=== PATIENT | female | born 1940 | race Two or more races ===

== ENCOUNTER 2018-04-10 02:14 | Inpatient (IN) | payer MEDICARE, MEDICAID ==
[~2018-04-10] VITALS: Ht 165.1 cm; Wt 54.9 kg
[~2018-04-10 02:14] MED LIST: ATOR10TA PO; BISA-79 RC; CALC-838 PEG; CRAN500C5 PO; DILT240C2 PO; MAGN400O21 PO; MELA3TAB PO; METO50TA16 PO; METOLAZONE PO; MONT10TA22 PO; OXCA150T5 PO; OXYC10TA49 PO; PRED20TA PO; PRED5TAB48 PO; RIVA10TA PO; TEMA15CA PO; TRAV5DRO OP; TYL2T PO; [UNRECOGNIZED DRUG - OTHER] PEG
[2018-04-10] MEDS ORDERED: IPRATROPIUM NEB FS 0.5 MG/2.5 ML AMPUL.NEB NEB ONE (02:30)
[2018-04-10] MEDS ORDERED: ALBUTEROL FS 2.5 MG/3 ML VIAL.NEB NEB ONE (02:30)
--- NOTE | 2018-04-10 02:30 | NUR ---
PT BIB [facility] WITH A C/O SOB. PT CALLED 911 HERSELF. PT RESIDES AT THE [facility], [place]. PT STATED THAT THE STAFF WOULD NOT CALL FOR HER AND SHE CALLED 911 HERSELF. PT IS ABLE TO SPEAK IN FULL SENTENCES. PT IS ON 3L O2 VIA NC SATURATING AT 94%. PT STATED THAT SHE HAS BEEN ON 4L O2 VIA NC AT HER FACILITY. O2 INCREASED TO 4L. PT IS SATURATING AT 94%. DR. HERNANDEZ IS AT THE BEDSIDE SPEAKING TO THE PT.
[2018-04-10] MEDS ORDERED: ALBUTEROL FS 2.5 MG/3 ML VIAL.NEB ONE (02:38)
[2018-04-10] MEDS ORDERED: IPRATROPIUM NEB FS 0.5 MG/2.5 ML AMPUL.NEB ONE (02:38)
--- NOTE | 2018-04-10 02:38 | NUR ---
STARTED 20G IV IN RAC AND BLOOD WAS DRAWN.
--- NOTE | 2018-04-10 02:43 | NUR ---
PT IS ON A BREATHING TX.
[2018-04-10 02:57] LABS: BASOPHILS % (AUTO) 0.3 % (0.0-2.0); EOSINOPHILS % (AUTO) 3.9 % (0.0-6.0); HEMATOCRIT 43 % (33-45); LYMPHOCYTES # (AUTO) 0.6 /CMM (0.8-4.8); LYMPHOCYTES % (AUTO) 11.2 % (20.0-44.0); MEAN CORPUSCULAR HGB CONC 32 g/dl (31.0-36.0); MEAN CORPUSCULAR VOLUME 95 fL (82-100); MONOCYTES # (AUTO) 0.4 /CMM (0.1-1.30); MONOCYTES % (AUTO) 7.1 % (2.0-12.0); NEUTROPHILS # (AUTO) 4.1 /CMM (1.8-8.9); NEUTROPHILS % (AUTO) 77.5 % (43.0-81.0); PLATELET COUNT (AUTO) 172 /CMM (150-450); RED BLOOD CELL COUNT(AUTO) 4.59 MIL/uL (4.0-5.2); WHITE BLOOD COUNT (AUTO) 5.3 K/uL (4.3-11.0)
--- NOTE | 2018-04-10 03:00 | NUR ---
CXR IN PROGRESS AT THE BEDSIDE.
[2018-04-10 03:05] LABS: CALCIUM, SERUM 8.5 mg/dL (8.5-10.1); CARBON DIOXIDE 35 mmol/L (21-32); CHLORIDE 105 mmol/L (98-107); CREATININE 0.5 mg/dL (0.6-1.3); GLUCOSE 104 mg/dL (74-106); POTASSIUM 3.5 mmol/L (3.5-5.1); SODIUM SERUM 143 mmol/L (136-145); UREA NITROGEN, BLOOD 18 mg/dL (7-18)
[2018-04-10 03:11] LABS: ALANINE AMINOTRANSFERASE 21 U/L (12-78); ALBUMIN 3.1 g/dL (3.4-5.0); ALKALINE PHOSPHATASE 79 U/L (46-116); ASPARTATE AMINOTRANSFERASE 28 U/L (15-37); BILIRUBIN,DIRECT 0.1 mg/dL (0.0-0.2); BILIRUBIN,TOTAL 0.3 mg/dL (0.2-1.0); TOTAL PROTEIN, SERUM 6.7 g/dL (6.4-8.2)
[2018-04-10] MEDS ORDERED: hydrALAZINE HCL IV 20 MG VIAL IV ONE (04:00)
[2018-04-10] MEDS ORDERED: CEFEPIME 1 GM in IV D5W 50 ML IV ONE (04:00)
[2018-04-10] MEDS ORDERED: CEFEPIME 1 GM VIAL ONE (04:09)
--- NOTE | 2018-04-10 04:19 | NUR ---
PT REC'D MEDICATION ORDERED.
--- NOTE | 2018-04-10 04:20 | NUR ---
PT IS GOING TO TELE 327-1. DR SANDERS IS ADMITTING.
[2018-04-10 04:35] VITALS: BP 103/49
[2018-04-10] MEDS ORDERED: MAGNESIUM HYDROXIDE 30 ML UDC PO PRN (05:00)
[2018-04-10] MEDS ORDERED: BISACODYL (5 MG) 5 MG TABLET.DR PO PRN (05:00)
[2018-04-10] MEDS ORDERED: LEVALBUTEROL HCL NEB 1.25 MG/0.5 ML VIAL.NEB NEB PRN (05:30)
[2018-04-10] MEDS ORDERED: ONDANSETRON HCL/PF 4 MG/2 ML VIAL IVP PRN (05:30)
[2018-04-10] MEDS ORDERED: IPRATROPIUM NEB FS 0.5 MG/2.5 ML AMPUL.NEB NEB PRN (05:30)
[2018-04-10] MEDS ORDERED: ACETAMINOPHEN 325 MG TABLET PO PRN (05:30)
[2018-04-10] MEDS: methylPREDNISolone SOD SUCC 40 MG/ML VIAL IV SCH ×3 (05:40→20:03)
[2018-04-10] MEDS ORDERED: TEMAZEPAM 7.5 MG CAPSULE PO ONE (07:00)
[2018-04-10 07:05] VITALS: BP 107/59
[2018-04-10] MEDS: PANTOPRAZOLE 40 MG TABLET.DR PO SCH (07:30)
--- NOTE | 2018-04-10 07:40 | NUR ---
RN NOTES: -AROUND 0400 RECEIVED ENDORSEMENT FROM [facility] - ER/RN,PATIENT WAS STARTED WITH MAXIPIME 1GM,ATROVENT AND VENTOLIN GIVEN.AWAITING FOR ARRIVAL IN [address] -AT 0435 PATIENT ADMITTED IN [facility] 326-2, ACCOMPANIED BY 2 RN VIA NEMESIO, ON BREAD WRAPPING MACHINE FEEDER, A/O2-3 WITH PERIODS OF FORGETFULNESS, PATIENT LOOKS ANXIOUS AND TIRED, NOTED WITH ON AND OFF PRODUCTIVE COUGH, STICKY WHITISH PHLEGM,ON O2 AT 4L/MIN SPO2-94%, ON TELE MONITOR A.FIB WITH OCCASIONAL PVC RATE 108-110,ORIENTED TO UNIT AND STAFF,FALL,SAFETY,SEIZURE AND ASPIRATION PRECAUTION OBSERVED, KEPT ON SEMI FOWLERS POSITION, ALL LIGHT KEPT WITHIN EASY REACH.BODY ASSESSMENT DONE:1) OLD SCAB ON THE LEFT KNEE 2) SKIN ABRASION ON SHA 3) SKIN DISCOLORATION AND OLD SCAB ON RUE 4) NON BLANCHABLE REDNESS ON SACROCOCCYX AREA(NEAR RIGHT AND LEFT BUTTOCKS) 5) NON BLANCHABLE REDNESS ON THE RIGHT HIP. -0620 PATIENT IS INSISTING TO TAKE MELATONIN, EXPLAINED TO HER THAT ITS ALREADY MORNING TIME AND THIS IS NOT THE TIME TO TAKE SLEEPING PILL, BUT SHE STARTED TO GET AGITATED AND SHOUTING SAYING "YOU ARE NOT HELPING ME, I WANT MEDICINE FOR SLEEP", SHE WANT RESTORIL 7.5MG, WAS NOTIFIED AND ORDER OBTAINED FOR X1 DOSE. 0647AM ORDER VERIFIED IN PHARMACY SPOKE WITH V, RESTORIL IMMEDIATELY GIVEN PER PATIENT REQUEST.
[2018-04-10 07:52] LABS: B-TYPE NATRIURETIC PEPTIDE 3731 PG/ML (0-125); CALCIUM, SERUM 8.1 mg/dL (8.5-10.1); CARBON DIOXIDE 33 mmol/L (21-32); CHLORIDE 106 mmol/L (98-107); CREATININE 0.6 mg/dL (0.6-1.3); GLUCOSE 117 mg/dL (74-106); POTASSIUM 3.3 mmol/L (3.5-5.1); SODIUM SERUM 143 mmol/L (136-145); UREA NITROGEN, BLOOD 16 mg/dL (7-18)
--- NOTE | 2018-04-10 07:52 | NUR ---
RN NOTES: -FOR URINE TEST, WOUND CONSULT, DIETARY CONSULT, FOR ECHO,ENDORSED FOR CONTINUITY OF CARE.
[2018-04-10 08:00] VITALS: BP 113/53
[2018-04-10] MEDS: RIVAROXABAN 10 MG TABLET PO SCH (08:00)
[2018-04-10 08:53] LABS: BASOPHILS % (AUTO) 0.1 % (0.0-2.0); EOSINOPHILS % (AUTO) 1.1 % (0.0-6.0); HEMATOCRIT 40 % (33-45); HEMOGLOBIN 12.8 g/dL (11.5-14.8); LYMPHOCYTES # (AUTO) 0.4 /CMM (0.8-4.8); LYMPHOCYTES % (AUTO) 6.7 % (20.0-44.0); MEAN CORPUSCULAR HGB CONC 32 g/dl (31.0-36.0); MEAN CORPUSCULAR VOLUME 94 fL (82-100); MONOCYTES # (AUTO) 0.3 /CMM (0.1-1.30); NEUTROPHILS # (AUTO) 4.7 /CMM (1.8-8.9); NEUTROPHILS % (AUTO) 87.1 % (43.0-81.0); PLATELET COUNT (AUTO) 143 /CMM (150-450); RED BLOOD CELL COUNT(AUTO) 4.21 MIL/uL (4.0-5.2); WHITE BLOOD COUNT (AUTO) 5.4 K/uL (4.3-11.0)
[2018-04-10] MEDS: OXCARBAZEPINE 150 MG TABLET PO SCH ×2 (09:00→20:07)
[2018-04-10] MEDS: FLUTICASONE/VILANTEROL 1 EACH BLST.W.DEV IH SCH (09:00)
[2018-04-10] MEDS: DILTIAZEM HCL CD 240 MG PO SCH (09:00)
[2018-04-10] MEDS: AMOX/CLAVULANATE 875 MG TABLET PO SCH ×2 (09:00→20:04)
[2018-04-10] MEDS ORDERED: METOLAZONE 5 MG TABLET PO SCH (09:00)
[2018-04-10] MEDS: METOLAZONE 2.5 MG TABLET PO SCH (09:00)
[2018-04-10 09:18] LABS: CHOLESTEROL 136 mg/dL (<200); HDL CHOLESTEROL 47 mg/dL (40-60); LDL 84 mg/dL (0-99); TRIGLYCERIDES 65 mg/dL (30-150)
[2018-04-10 10:24] LABS: THYROID STIMULATING HORMONE < 0.007 uIU/mL (0.358-3.74)
[2018-04-10] MEDS ORDERED: POTASSIUM CHLORIDE 20 MEQ TAB.PRT.SR PO SCH (10:30)
[2018-04-10 12:00] VITALS: BP 116/58
[2018-04-10] MEDS: oxyCODONE IR immediate release 5 MG PO PRN (12:37)
[2018-04-10] MEDS ORDERED: LORATADINE 10 MG TABLET PO PRN (14:00)
[2018-04-10] MEDS: GUAIFENESIN LA 600 MG TABLET.SA PO SCH ×2 (15:30→20:03)
[2018-04-10 16:00] VITALS: BP 115/62
[2018-04-10] MEDS ORDERED: diphenhydrAMINE HCL 25 MG CAPSULE PO PRN (16:00)
[2018-04-10] MEDS: AZITHROMYCIN 500 MG in IV D5W 250 ML IV SCH (17:10)
--- NOTE | 2018-04-10 18:36 | NUR ---
RN CLOSING NOTES PT IN BED RESTING. NO S/S OF RESP DISTRESS/SOB. ALL PT NEEDS ANTICIPATED AND MET. SAFETY MEASURES IN PLACE, CALL LIGHT WITHIN REACH. WILL ENDORSE TO INTERLOCKER MAINTAINER FOR MARAI L.
--- NOTE | 2018-04-10 19:32 | NUR ---
MS RN OPENING NOTES: RECEIVED PT ON 4LPM VIA NC AND IS TOLERATING WELL. PT IS A/OX3. PT IS ASKING FOR HER EVENING MEDICATIONS AND A TURKEY SANDWICH. EXPLAINED TO HER THAT WE DO NOT CARRY TURKEY SANDWICHES. IV INTACT. BED ALARM ACTIVATED. BED KEPT IN LOW, LOCKED POSITION, AND SIDE RAILS X 2UP. WILL CONTINUE TO MONITOR PT.
[2018-04-10 20:00] VITALS: BP 115/73
--- NOTE | 2018-04-10 20:08 | NUR ---
MS RN NOTES: PT REFUSED TRILEPTAL 150MG. EXPLAINED TO PT RISKS AND BENEFITS X3. PT SAID HER NEUROSURGEON SAID SHE DOES NOT HAVE TO TAKE IT ANYMORE. PT SAID " I DO NOT HAVE SEIZURES." PT STILL REFUSING.
--- NOTE | 2018-04-10 20:46 | NUR ---
MS KIRK NOTES: INFORMED DR. SANDERS THAT PT WANTS ANOTHER DOSE OF DULCOLAX FOR TONIGHT. Addendum: 04/10/18 at 2047 by JOLIE MARIE RN OK TO GIVE ANOTHER DOSE FOR TONIGHT.
[2018-04-10] MEDS ORDERED: TEMAZEPAM 7.5 MG CAPSULE PO PRN (21:00)
--- NOTE | 2018-04-10 21:10 | NUR ---
MS RN NOTES: UPON ADMINISTERING DULCOLAX 10MG, PT ONLY WANTED TO TAKE 1 TABLET. PT WAS ADMINISTERED 1 TABLET OF DULCOLAX. WASTED OTHER TABLET.
--- NOTE | 2018-04-10 21:10 | NUR ---
MS RN NOTES: PT REQUESTING FOR SLEEPING PILL. PT WAS ADMINISTERED RESTORIL 7.5MG PO. WILL CONTINUE TO MONITOR.
--- NOTE | 2018-04-10 21:38 | NUR ---
MS RN NOTES: PT REFUSED TO TAKE LIPITOR 10MG PO AFTER EXPLAINING RISKS AND BENEFITS X 3. "THIS IS SOME CRAZY SHIT". PT REFUSED TO TAKE IT.
[2018-04-10] MEDS ORDERED: Medication Not On Formulary EA (Melatonin 6 MG) PO SCH (22:00)
[2018-04-10] MEDS ORDERED: LATANOPROST EYE DROP 0.005% 2.5 ML BOTTLE EACHEYE SCH (22:00)
[2018-04-10] MEDS ORDERED: BISACODYL (5 MG) 5 MG TABLET.DR PO ONE (22:00)
[2018-04-10] MEDS ORDERED: MONTELUKAST SODIUM (10MG) 10 MG TABLET PO SCH (22:00)
[2018-04-10] MEDS ORDERED: ATORVASTATIN 10 MG TABLET PO SCH (22:00)
[2018-04-11 01:05] VITALS: BP 120/66
[2018-04-11] MEDS: oxyCODONE IR immediate release 5 MG PO PRN (01:15)
--- NOTE | 2018-04-11 01:20 | NUR ---
MS RN NOTES: UPON ADMINISTER OXY IR 10MG, PT SAID SHE ONLY TAKES 1 TABLET. WILL WASTE THE OTHER OXY IR WITH ANOTHER NURSE. PT ALSO REQUESTED FOR HER CLARITIN 10MG AND WAS ADMINISTERED CLARITIN 1MG PO. Addendum: 04/11/18 at 0141 by JOLIE MARIE RN OTHER OXY IR 5MG WAS WASTED WITH ANOTHER RN, PENNY HAZEL. WASTED AND WITNESSED IN MED ROOM.
[2018-04-11] MEDS: methylPREDNISolone SOD SUCC 40 MG/ML VIAL IV SCH ×2 (05:01→12:57)
--- NOTE | 2018-04-11 06:26 | NUR ---
MS RN CLOSING NOTES: ALL NEEDS WERE ATTENDED AND ANTICIPATED FOR. PT ANTICIPATING FOR BREAKFAST. PT RESTING IN BED COMFORTABLY. PT NOW ON 2LPM VIA NC AND IS TOLERATING WELL. IV REMAINS INTACT. CURRENTLY H/L. BED ALARM ACTIVATED. PT ON HIGH MONTES'S POSITION. BED KEPT IN LOW, LOCKED POSITION, AND SIDE RAILS X 2UP. WILL ENDORSE TO AM NURSE FOR MARIA L.
--- NOTE | 2018-04-11 07:13 | NUR ---
MS RN OPENING NOTE RECEIVED PATIENT IN BED. SLEEPING, EASILY AROUSED WITH VERBAL STIMULI. ORIENTED X3. ON 2L O2 VIA NC, TOLERATING WELL. IN NO APPARENT DISTRESS OR DISCOMFORT AT THIS TIME. RESPIRATIONS EVEN AND UNLABORED. DENIES PAIN AND SOB. PATIENT IS INCONTINENT WITH USE OF DIAPER. RIGHT WRIST 24G IVC, SL, PATENT AND INTACT. PATIENT IS ABLE TO COMMUNICATE NEEDS. KEPT CLEAN AND COMFORTABLE. ALL NEEDS ATTENDED, SAFETY MEASURES IN PLACE, BED IN LOW LOCKED POSITION, SIDE RAILS UP X2, CALL LIGHT WITHIN EASY REACH. WILL CONTINUE TO MONITOR.
[2018-04-11 07:22] LABS: CALCIUM, SERUM 8.8 mg/dL (8.5-10.1); CARBON DIOXIDE 33 mmol/L (21-32); CHLORIDE 105 mmol/L (98-107); CREATININE 0.5 mg/dL (0.6-1.3); GLUCOSE 75 mg/dL (74-106); POTASSIUM 4.1 mmol/L (3.5-5.1); SODIUM SERUM 142 mmol/L (136-145); UREA NITROGEN, BLOOD 20 mg/dL (7-18)
[2018-04-11 08:00] VITALS: BP_SYST 136; BP_DIAS 61; BP_DIAS 81
[2018-04-11] MEDS: RIVAROXABAN 10 MG TABLET PO SCH (08:40)
[2018-04-11] MEDS: OXCARBAZEPINE 150 MG TABLET PO SCH (08:43)
[2018-04-11] MEDS: GUAIFENESIN LA 600 MG TABLET.SA PO SCH (08:43)
[2018-04-11] MEDS: AMOX/CLAVULANATE 875 MG TABLET PO SCH (08:44)
[2018-04-11] MEDS: METOLAZONE 2.5 MG TABLET PO SCH (08:44)
[2018-04-11] MEDS: DILTIAZEM HCL CD 240 MG PO SCH (08:45)
[2018-04-11] MEDS: PANTOPRAZOLE 40 MG TABLET.DR PO SCH (08:55)
[2018-04-11] MEDS: FLUTICASONE/VILANTEROL 1 EACH BLST.W.DEV IH SCH (08:56)
[2018-04-11] MEDS ORDERED: LORA10TA7 PO (13:10)
[2018-04-11] MEDS ORDERED: GUAI600T53 PO (13:10)
[2018-04-11] MEDS ORDERED: Amox/Clavulanate PO (13:10)
[2018-04-11 16:00] VITALS: BP 146/60
--- NOTE | 2018-04-11 16:30 | NUR ---
PATIENT REQUESTED TO REMOVE HER IV LINE STATING IT IS BOTHERING HER AND SHE IS GOING TO GO SOON ANYWAYS. EXPLAINED THAT WHILE SHE IS IN THE HOSPITAL IT IS ADVISED TO HAVE THE IV LINE PER MDS ORDERS. PATIENT REFUSES. EXPLAINED THAT THAT IS ANOTHER ANTIBIOTIC TO BE ADMINISTERED AT 5 PM. PATIENT REFUSED DESPITE ALL RISKS AND BENEFITS. IV SITE DISCONTINUED AT THIS TIME.
[2018-04-11] MEDS: AZITHROMYCIN 500 MG in IV D5W 250 ML IV SCH (17:00)
--- NOTE | 2018-04-11 18:56 | NUR ---
MS FORM BUILDING SUPERVISOR NOTE RECEIVED ORDER FOR DISCHARGE FROM [facility]. PATIENT IS BEING TRANSFERRED BACK TO [facility]. PATIENT IS STABLE, CLEARED BY HOSPITALIST. VITALS SIGNS STABLE. ON ROOM AIR, TOLERATING WELL. ALERT ORIENTED X3. IN NO APPARENT DISTRESS OR DISCOMFORT AT THIS TIME. RESPIRATIONS EVEN AND UNLABORED, DENIES PAIN AND SOB. FREQUENT MOOD CHANGES OBSERVED IN PATIENT. AT TIMES NON-COMPLIANT, AND ANGRY. PATIENT REFUSED SKIN ASSESSMENT PRIOR TO DISCHARGE. SAID SHE WAS CHECKED YESTERDAY WHEN SHE CAME AND SHE WANTS TO BE LEFT ALONE AT THIS TIME, SHE JUST WANTS TO LEAVE. NO PHOTOS OBTAINED. PATIENT'S IV WAS REMOVED EARLIER PER HER REQUEST. DISCHARGE PREPARED VIA [facility]. EDUCATION PROVIDED TO THE PATIENT REGARDING MEDICATIONS AND FOLLOW UP CARE. PATIENT WILL HAVE SKILLED CARE AFTER DISCHARGE. ALL PAPERS SIGNED BY THE PATIENT VERBALIZED UNDERSTANDING. EDUCATIONAL MATERIAL ATTACHED WITH DISCHARGE PAPERWORK. NO BELONGINGS PRESENT WITH THE PATIENT, CHECKED AND NOTED. ALL PAPERS WERE SIGNED, COPIES MADE PLACED IN CHART. PATIENT REFUSED VACCINATIONS. ID BAND REMOVED. REPORT GIVEN TO REAGAN WOODRUFF AT THE [facility] PRIOR TO DEPARTURE. PATIENT WAS PICKED UP BY AMBULANCE AT 1856 IN STABLE CONDITION.
== END 2018-04-11 18:56 | DRG 191 ==
LOC: ER 02:16 → TELE 04:06 → MED 15:47
PROVIDERS: ADMIT Internal Medicine; ATTEND Internal Medicine
DX: J44.1 Chronic obstructive pulmonary disease with (acute) exacerbation (principal); I69.354 Hemiplegia and hemiparesis following cerebral infarction affecting left non-dominant side; D68.59 Other primary thrombophilia; E78.5 Hyperlipidemia, unspecified; B19.20 Unspecified viral hepatitis C without hepatic coma; H40.9 Unspecified glaucoma; Z88.1 Allergy status to other antibiotic agents; Z88.8 Allergy status to other drugs, medicaments and biological substances; Z79.899 Other long term (current) drug therapy; Z87.01 Personal history of pneumonia (recurrent); Z87.891 Personal history of nicotine dependence; J40 Bronchitis, not specified as acute or chronic; E87.6 Hypokalemia; I48.91 Unspecified atrial fibrillation; Z74.09 Other reduced mobility; E05.90 Thyrotoxicosis, unspecified without thyrotoxic crisis or storm; L89.301 Pressure ulcer of unspecified buttock, stage 1; L89.151 Pressure ulcer of sacral region, stage 1; L89.221 Pressure ulcer of left hip, stage 1; I48.2 Chronic atrial fibrillation; I11.0 Hypertensive heart disease with heart failure; I50.9 Heart failure, unspecified; Z79.01 Long term (current) use of anticoagulants
CPT/HCPCS: 36415; 71045-TC; 80048-TC; 80061-TC; 80076-TC; 83605-TC; 83735-TC; 83880; 84100-TC; 84439-TC; 84443-TC; 84484-TC; 85025-TC; 85730-TC; 87040-TC; 87081-TC; 93307-TC; G0378; J0456; J0692; J2920; J7050; J7060